=== PATIENT | female | born 1965 | race Caucasian/White ===

== ENCOUNTER 2017-06-07 23:55 | Emergency (ER) | payer MEDICAID ==
[2017-06-07] MEDS ORDERED: methylPREDNISolone Sodium Succinate 125 MG/2 ML SDV ONE (23:59)
[2017-06-07] MEDS ORDERED: Albuterol/Ipratropium 3.0-0.5 MG/3 ML Neb Soln ONE (23:59)
[2017-06-08] MEDS ORDERED: methylPREDNISolone Sodium Succinate 125 MG/2 ML SDV IM ONE (00:02)
[2017-06-08] MEDS ORDERED: Albuterol/Ipratropium 3.0-0.5 MG/3 ML Neb Soln NEB ONE (00:02)
--- NOTE | 2017-06-08 00:07 | EDM.PDOC ---
ED HPI GENERAL MEDICAL PROBLEM - General Stated Complaint: HARD TIME BREATHING Time Seen by Provider: 06/07/17 23:58 - History of Present Illness INITIAL COMMENTS - FREE TEXT/NARRATIVE: HISTORY AND PHYSICAL: History of present illness: Patient is 52-year-old female history of asthma presents with a concern of shortness of breath and wheezing she states she ran out of her inhaler she denies chest pain fever chills or other complaints. Upon arrival patient's daughter states patient was using methamphetamine also tonight Review of systems: As per history of present illness and below otherwise all systems reviewed and negative. Past medical history: As per history of present illness and as reviewed below otherwise noncontributory. Surgical history: As per history of present illness and as reviewed below otherwise noncontributory. Social history: No reported history of drug or alcohol abuse. Family history: As per history of present illness and as reviewed below otherwise noncontributory. Physical exam: HEENT: Atraumatic, normocephalic, pupils reactive, negative for conjunctival pallor or scleral icterus, mucous membranes moist, throat clear, neck supple, nontender, trachea midline. Lungs: Diminished with inflammatory wheezing noted rhonchi no crackles breath sounds equal bilaterally, chest nontender. Heart: S1S2, regular, negative for clicks, rubs, or JVD. Abdomen: Soft, nondistended, nontender. Negative for masses or hepatosplenomegaly. Negative for costovertebral tenderness. Pelvis: Stable nontender. Genitourinary: Deferred. Rectal: Deferred. Extremities: Atraumatic, negative for cords or calf pain. Neurovascular unremarkable. Neuro: Awake, alert, oriented. Cranial nerves II through XII unremarkable. Cerebellum unremarkable. Motor and sensory unremarkable throughout. Exam nonfocal. Diagnostics: Chest x-ray pulse oximetry 97-99% upon arrival Therapeutics: Albuterol ipratropium nebulizer 125 mg IM Impression: #1 acute asthmatic exacerbation #2 substance abuse Definitive disposition and diagnosis as appropriate pending reevaluation and review of above. - Related Data Allergies Allergy/AdvReac Type Severity Reaction Status Date / Time amitriptyline Allergy Cannot Verified 06/08/17 00:16 Remember morphine Allergy Cannot Verified 06/08/17 00:16 Remember ED ROS GENERAL - Review of Systems Review Of Systems: ROS reveals no pertinent complaints other than HPI. ED EXAM, GENERAL - Physical Exam Exam: See Below (See dictation) Course - Vital Signs Last Recorded V/S: Last Vital Signs Temp 35.7 C 06/08/17 00:05 Pulse 74 06/08/17 00:05 Resp 23 H 06/08/17 00:05 BP 134/65 06/08/17 00:05 Pulse Ox 99 06/08/17 00:05 - Orders/Labs/Meds Orders: Active Orders 24 hr Category Date Time Status RT Aerosol Therapy [RC] ASDIRECTED Care 06/08/17 00:02 Active Chest 1V Frontal [CR] Stat Exams 06/08/17 00:06 Taken Meds: Medications Discontinued Medications Generic Name Dose Route Start Last Admin Trade Name Freq PRN Reason Stop Dose Admin Albuterol/Ipratropium Confirm 06/07/17 23:59 06/08/17 00:06 Duoneb 3.0-0.5 Mg/3 Ml Administered 06/08/17 00:00 Not Given Dose 3 ml .ROUTE .STK-MED ONE Albuterol/Ipratropium 3 ml 06/08/17 00:02 06/08/17 00:06 Duoneb 3.0-0.5 Mg/3 Ml NEB 06/08/17 00:03 3 ml ONETIME ONE Administration Methylprednisolone Sodium Succinate Confirm 06/07/17 23:59 06/08/17 00:06 Solu-Medrol Administered 06/08/17 00:00 Not Given Dose 125 mg .ROUTE .STK-MED ONE Methylprednisolone Sodium Succinate 125 mg 06/08/17 00:02 06/08/17 00:06 Solu-Medrol IM 06/08/17 00:03 125 mg ONETIME ONE Administration Departure - Departure Time of Disposition: 00:29 Disposition: Home, Self-Care 01 Condition: Good Clinical Impression: Acute asthma, Substance abuse - Discharge Information Additional Instructions: The following information is given to patients seen in the emergency department who are being discharged to home. This information is to outline your options for follow-up care. We provide all patients seen in our emergency department with a follow-up referral. The need for follow-up, as well as the timing and circumstances, are variable depending upon the specifics of your emergency department visit. If you don't have a primary care physician on staff, we will provide you with a referral. We always advise you to contact your personal physician following an emergency department visit to inform them of the circumstance of the visit and for follow-up with them and/or the need for any referrals to a consulting specialist. The emergency department will also refer you to a specialist when appropriate. This referral assures that you have the opportunity for followup care with a specialist. All of these measure are taken in an effort to provide you with optimal care, which includes your followup. Under all circumstances we always encourage you to contact your private physician who remains a resource for coordinating your care. When calling for followup care, please make the office aware that this follow-up is from your recent emergency room visit. If for any reason you are refused follow-up, please contact the [facility] emergency department at and asked to speak to the emergency department charge nurse. [facility] [address] [place] [id number] Albuterol as prescribed. Using drugs follow-up primary medical doctor one-two days and/or clinic above as discussed return as needed as discussed - My Orders Last 24 Hours: My Active Orders 06/08/17 00:02 RT Aerosol Therapy [RC] ASDIRECTED 06/08/17 00:06 Chest 1V Frontal [CR] Stat - Assessment/Plan Last 24 Hours: My Active Orders 06/08/17 00:02 RT Aerosol Therapy [RC] ASDIRECTED 06/08/17 00:06 Chest 1V Frontal [CR] Stat
[2017-06-08 00:45] VITALS: BP 116/60
--- NOTE | 2017-06-09 17:59 | CR ---
EXAM DATE: 06/07/17 PATIENT'S AGE: 52 Patient: LARISA LINDO Facility: [place], [place] Site . Site : [id number] Study: XRay Chest [id number]/4/2017 12:24:06 AM Ordering Physician: Yunior Tena Final Report: INDICATION: Shortness of Breath TECHNIQUE: Chest radiograph 1 view COMPARISON: None FINDINGS: The study is moderately limited by body habitus. Cardiovascular and mediastinum: The cardiac silhouette is normal in appearance and size. Mediastinum is within normal limits. Lungs and pleural space: Both lungs are unremarkable in appearance. No sign of pleural effusion. No pneumothorax is seen. Bones and soft tissues: No significant findings. IMPRESSION: 1. No acute cardiopulmonary disease seen. Dictated by: Jakob Salmon MD @ 06/08/2017 00:27:17 (Electronic Signature) Report Signed by Proxy. [email or web address]
== END 2017-06-08 00:45 | disposition home or self-care (01) ==
LOC: MW.ED 23:55
DX: J45.901 Unspecified asthma with (acute) exacerbation (principal); F19.10 Other psychoactive substance abuse, uncomplicated; Z88.5 Allergy status to narcotic agent; Z88.8 Allergy status to other drugs, medicaments and biological substances
CPT/HCPCS: 71010; 96372; 99284; J2930; 99283